=== PATIENT | male | born 1995 | race American Indian/Alaskan Native ===

== ENCOUNTER 2016-12-26 23:30 | Emergency (ER) | payer OTHER ==
[2016-12-27 00:22] LABS: Basophils % (Auto) 0.6 % (0.0-1.8); Eosinophils % (Auto) 0.5 % (0.0-4.3); Hematocrit 46.6 % (35.5-45.6); Hemoglobin 15.6 gm/dl (11.8-15.2); Mean Corpuscular HGB Conc 34 % (32-34); Mean Corpuscular Hemoglobin 27 pg (28-32); Mean Corpuscular Volume 81 fl (84-94); Platelet Count 298 K/mm3 (140-440); Red Blood Count 5.77 M/mm3 (3.65-5.03); Red Cell Distribution Width 15.1 % (13.2-15.2); White Blood Count 9.7 K/mm3 (4.5-11.0)
[2016-12-27 00:36] LABS: Anion Gap 20 mmol/L; Blood Urea Nitrogen 12 mg/dL (9-20); Calcium 9.2 mg/dL (8.4-10.2); Carbon Dioxide 24 mmol/L (22-30); Chloride 100.6 mmol/L (98-107); Glucose 109 mg/dL (75-100); Potassium 3.5 mmol/L (3.6-5.0); Sodium 141 mmol/L (137-145)
[2016-12-27 02:07] LABS: Urine Drugs of Abuse Note Disclamer
[2016-12-27 02:23] LABS: Bilirubin,Urine NEG (Negative); Blood,Urine NEG (Negative); Ketones,Urine NEG (Negative); Leukocyte Esterase,Urine NEG (Negative); Mucus,Urine 2+ /HPF; Nitrite,Urine NEG (Negative); Protein,Urine <15 mg/dL mg/dL (Negative); WBC,Urine < 1.0 /HPF (0.0-6.0)
--- NOTE | 2016-12-27 04:34 | Emergency Department Report ---
ED Psych HPI - General Chief Complaint: Psych Stated Complaint: CODY SPEARS Time Seen by Provider: 12/27/16 04:22 Source: patient Mode of arrival: Ambulatory - History of Present Illness Initial Comments: Patient is a pleasant 21-year-old male presenting with his parents for evaluation of depression. Patient reports for the last month he's been feeling down and having depressed feelings described as over thinking and overall process seen certain thoughts. Patient denies any suicidal ideation, homicidal ideation delusions, hallucinations, positional firearms, illicit drug abuse, or alcohol use. Patient is a very supportive family with mother and father at the bedside, patient recently graduated from [employer] with a degree and human resources and is getting his Master's degree. No prior history of depression or suicidal attempt. No family history of psychiatric illness. Patient already has a appointment today with a psychotherapist, and his father is well connected with the psychiatric Department at [employer] for further evaluation. Otherwise patient has no other complaints. - Related Data Allergies Allergy/AdvReac Type Severity Reaction Status Date / Time No Known Allergies Allergy Verified 12/26/16 23:51 ED Review of Systems ROS: Stated complaint: CODY EVAL Other details as noted in HPI Comment: All other systems reviewed and negative ED Past Medical Hx - Past Medical History Previous Medical History?: No - Surgical History Past Surgical History?: No - Social History Smoking Status: Former Smoker Substance Use Type: None ED Physical Exam - General Limitations: No Limitations General appearance: alert, in no apparent distress - Head Head exam: Present: atraumatic, normocephalic - Eye Eye exam: Present: normal appearance - ENT ENT exam: Present: mucous membranes moist - Neck Neck exam: Present: normal inspection - Respiratory Respiratory exam: Present: normal lung sounds bilaterally. Absent: respiratory distress - Cardiovascular Cardiovascular Exam: Present: regular rate, normal rhythm. Absent: systolic murmur, diastolic murmur, rubs, gallop - GI/Abdominal GI/Abdominal exam: Present: soft, normal bowel sounds - Rectal Rectal exam: Present: deferred - Extremities Exam Extremities exam: Present: normal inspection - Back Exam Back exam: Present: normal inspection - Neurological Exam Neurological exam: Present: alert, oriented X3 - Psychiatric Psychiatric exam: Present: normal affect, normal mood - Skin Skin exam: Present: warm, dry, intact, normal color. Absent: rash ED Course Vital Signs 12/26/16 12/27/16 23:51 04:18 Temperature 98.4 F Pulse Rate 97 H 78 Respiratory 20 20 Rate Blood Pressure 149/98 Blood Pressure 143/90 [Right] O2 Sat by Pulse 100 98 Oximetry ED Medical Decision Making - Lab Data Result diagrams: 12/27/16 00:02 12/27/16 00:02 - Medical Decision Making After speaking with the patient and his family the patient is calm and cooperative and does not appear to be infected himself or anyone around him. Patient already has follow-up for today with a psychotherapist and his father works at the psychiatric department at [facility] where patient has collateral support and a means for further psychiatric evaluation. Patient and family feel safe taking the patient home. I advised the patient to stay away from mood altering substances including illicit drugs and alcohol use. Patient stable to be discharged and to follow-up with the psychotherapist today and further psychiatric evaluation at [place] as planned. Critical care attestation.: If time is entered above; I have spent that time in minutes in the direct care of this critically ill patient, excluding procedure time. ED Disposition Clinical Impression: Depression (emotion) Disposition: DC-01 TO HOME OR SELFCARE Is pt being admited?: No Condition: Stable Instructions: Depression (ED) Additional Instructions: PLEASE FOLLOW UP WITH YOUR THERAPIST TODAY AND [facility] PLANNED RETURN TO THE ED IF YOU FEEL UNSAFE OR NEED TO BE RE-EVALUATED Forms: Work/School Release Form(ED)
[2016-12-27 05:35] VITALS: BP 143/90
== END 2016-12-27 05:35 | disposition home or self-care (01) ==
LOC: ED 23:30
DX: F32.9 Major depressive disorder, single episode, unspecified (principal); Z87.891 Personal history of nicotine dependence
CPT/HCPCS: 36415; 80048; 80307; 81001; 85025; 99283; G0480; 80320

== ENCOUNTER 2017-04-22 03:13 | Emergency (ER) | payer OTHER ==
[2017-04-22 03:56] LABS: Urine Drugs of Abuse Note Disclamer
[2017-04-22 04:02] LABS: Bilirubin,Urine NEG (Negative); Blood,Urine NEG (Negative); Ketones,Urine NEG (Negative); Leukocyte Esterase,Urine NEG (Negative); Mucus,Urine 3+ /HPF; Nitrite,Urine NEG (Negative)
[2017-04-22 04:40] LABS: Basophils % (Auto) 0.7 % (0.0-1.8); Eosinophils % (Auto) 0.3 % (0.0-4.3); Hematocrit 48.2 % (35.5-45.6); Mean Corpuscular HGB Conc 33 % (32-34); Mean Corpuscular Hemoglobin 27 pg (28-32); Mean Corpuscular Volume 80 fl (84-94); Platelet Count 270 K/mm3 (140-440); Red Blood Count 6.06 M/mm3 (3.65-5.03); Red Cell Distribution Width 14.7 % (13.2-15.2); White Blood Count 9.3 K/mm3 (4.5-11.0)
[2017-04-22 05:07] LABS: Alanine Aminotransferase 29 units/L (7-56); Albumin 4.8 g/dL (3.9-5); Albumin/Globulin Ratio 1.7 %; Alkaline Phosphatase 62 units/L (35-129); Anion Gap 21 mmol/L; BUN/Creatinine Ratio 10; Blood Urea Nitrogen 8 mg/dL (9-20); Calcium 9.7 mg/dL (8.4-10.2); Carbon Dioxide 26 mmol/L (22-30); Chloride 101.5 mmol/L (98-107); Glucose 101 mg/dL (75-100); Lipase 19 units/L (13-60); Potassium 3.6 mmol/L (3.6-5.0); Sodium 145 mmol/L (137-145); Total Protein 7.6 g/dL (6.3-8.2)
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
[2017-04-22] MEDS ORDERED: GEODON IM PRN (07:20)
[2017-04-22] MEDS ORDERED: TYLENOL PO PRN (07:20)
[2017-04-22] MEDS ORDERED: ALUM-MAG HYDROX-SIMETH 200-200-20MG/5ML PO PRN (07:20)
[2017-04-22] MEDS ORDERED: MILK OF MAGNESIA PO PRN (07:20)
[2017-04-22] MEDS ORDERED: ATIVAN IM PRN (07:21)
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
[2017-04-22 16:01] VITALS: BP 140/95
== END 2017-04-22 16:02 ==
LOC: EEVIPCON 03:13 → ED 03:13
DX: F23 Brief psychotic disorder (principal)
CPT/HCPCS: 36415; 80048; 80053; 80307; 81001; 83690; 85025; 96372; 99285; G0480; J2060; 80320

== ENCOUNTER 2017-10-09 12:28 | Emergency (ER) | payer OTHER ==
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
[2017-10-09 13:39] LABS: Hematocrit 49.4 % (35.5-45.6); Mean Corpuscular HGB Conc 34 % (32-34); Mean Corpuscular Hemoglobin 26 pg (28-32); Mean Corpuscular Volume 76 fl (84-94); Platelet Count 307 K/mm3 (140-440); Red Blood Count 6.47 M/mm3 (3.65-5.03)
[2017-10-09 13:44] LABS: Bacteria,Urine 1+ /HPF (Negative); Bilirubin,Urine NEG (Negative); Blood,Urine SM (Negative); Color,Urine Yellow (Yellow); Hyaline Casts,Urine 17 /LPF; Mucus,Urine 1+ /HPF; Urobilinogen,Urine < 2.0 mg/dL (<2.0)
[2017-10-09 13:48] LABS: BUN/Creatinine Ratio 14; Blood Urea Nitrogen 14 mg/dL (9-20); Calcium 9.5 mg/dL (8.4-10.2); Hemolysis Index 11
[2017-10-09 13:52] LABS: Amphetamine Screen,Urine PRESUMPTIVE NEGATIVE; Benzodiazepines Screen,Urine PRESUMPTIVE NEGATIVE; Cocaine Screen,Urine PRESUMPTIVE NEGATIVE; Methadone Screen,Urine PRESUMPTIVE NEGATIVE; Opiate Screen,Urine PRESUMPTIVE NEGATIVE
[2017-10-09 14:20] LABS: Basophils % (Manual) 0 % (0.0-1.8); Eosinophils % (Manual) 0 % (0.0-4.3); Platelet Estimate Consistent w Auto; RBC Morphology Normal; Total Cells Counted 100
[2017-10-09 14:22] LABS: Cannabinoid Screen,Urine PRESUMPTIVE POSITIVE
[2017-10-10 15:04] VITALS: BP 146/87
== END 2017-10-10 15:08 ==
LOC: ED 12:28
DX: Z00.8 Encounter for other general examination (principal)
CPT/HCPCS: 36415; 80048; 80307; 81001; 85007; 85025; 99285; G0480; 80320